=== PATIENT | male | born 1945 | race Caucasian/White ===

== ENCOUNTER 2021-07-08 09:18 | Outpatient (CLI) | payer MEDICARE ==
[2021-07-08 17:25] LABS: SARS-CoV-2 PCR by NAA Not Detected (NotDetected)
== END 2021-07-08 09:19 | disposition home or self-care (01) ==
LOC: LABBT 09:18
PROVIDERS: ATTEND Ophthalmology Retina Specialist
DX: Z01.812 Encounter for preprocedural laboratory examination (principal); H35.371 Puckering of macula, right eye; Z20.822 Contact with and (suspected) exposure to COVID-19
CPT/HCPCS: U0003; U0005

== ENCOUNTER 2021-07-13 07:04 | Day surgery (SDC) | payer MEDICARE, OTHER ==
[2021-07-09 11:56] VITALS: BMI 33.9
[~2021-07-13 07:04] MED LIST: EPINEPHrine 0.3 MG in Ophthalmic Irrigation Solution 500 ML IRR SCH
[2021-07-13] MEDS ORDERED: Phenylephrine 2.5% Ophth Soln 5 ML BOT ONE (07:29)
[2021-07-13] MEDS ORDERED: Cyclopentolate 1% Opth Drop 2 ML BOT ONE (07:29)
[2021-07-13] MEDS ORDERED: Midazolam HCl 2 mg/2 ml Vial ONE (08:48)
[2021-07-13] MEDS ORDERED: Fentanyl 100 MCG/2 ML VIAL ONE (08:48)
[2021-07-13] MEDS ORDERED: Bupivacaine PF 0.75% SDV 10 ML ONE (08:52)
[2021-07-13] MEDS ORDERED: Lidocaine 4% PF 5 ML AMP ONE (08:52)
[2021-07-13] MEDS ORDERED: CEFAZOLIN 1 GM VIAL ONE (08:52)
[2021-07-13] MEDS ORDERED: PROPOFOL 200 MG/20 ML VIAL ONE (08:52)
[2021-07-13] MEDS ORDERED: Maxitrol 0.1% Opth Oint 3.5 GM TUBE ONE (08:52)
[2021-07-13] MEDS ORDERED: Lidocaine 1% PF 5 ML VIAL ONE (08:52)
[2021-07-13] MEDS ORDERED: Triamcinolone 40 MG/ML VIAL ONE (08:52)
== END 2021-07-13 10:20 | disposition home or self-care (01) ==
LOC: SDC 07:04
PROVIDERS: ATTEND Ophthalmology Retina Specialist
PROC: 08T43ZZ Resection of Right Vitreous, Percutaneous Approach (ICD-10-PCS; principal; 2021-07-13)
PROC: 08NE3ZZ Release Right Retina, Percutaneous Approach (ICD-10-PCS; 2021-07-13)
DX: H35.371 Puckering of macula, right eye (principal); Z79.01 Long term (current) use of anticoagulants; Z79.02 Long term (current) use of antithrombotics/antiplatelets; Z79.84 Long term (current) use of oral hypoglycemic drugs; Z79.899 Other long term (current) drug therapy; Z88.2 Allergy status to sulfonamides
CPT/HCPCS: J0171; J0690; J2250; J2704; J3010; J3301; J3490